=== PATIENT | female | born 1950 | race Caucasian/White ===

== ENCOUNTER 2018-06-27 15:35 | Emergency (ER) | payer MEDICARE, BC ==
--- NOTE | 2018-06-27 18:02 | ER Document Report ---
ED General - General Chief Complaint: Rib Pain Stated Complaint: POSSIBLE BLOOD CLOT Time Seen by Provider: 06/27/18 16:43 Mode of Arrival: Ambulatory Notes: Patient is a 68-year-old female who was sent here by the urgent care center because she sustained a fall from a tree house last week and landed on her left ribs. She also hurt her left ankle which the urgent care to care of. They are concerned that she may have a blood clot. Or/PE. Patient is having some left lateral or axillary rib pain when she takes a deep breath and when it is palpated. Patient has a history of hypertension and mild depression which she takes BuSpar for. Patient does not smoke drink or do narcotics. She denies any chest pain or shortness of breath with the exception of a little rib pain left lateral side. TRAVEL OUTSIDE OF THE [place] IN LAST 30 DAYS: No - HPI Onset: Last week Onset/Duration: Gradual Quality of pain: Achy, Sharp Severity: Moderate Pain Level: 3 Associated symptoms: Hurts to breath. denies: Nonproductive cough, Productive cough Exacerbated by: Movement, Deep breathing Relieved by: Denies Similar symptoms previously: No Recently seen / treated by doctor: Yes - Related Data Allergies/Adverse Reactions: enalaprilat [From Vasotec] Allergy (Verified 06/27/18 15:37) levofloxacin [From Levaquin] Allergy (Verified 06/27/18 15:37) Past Medical History - General Information source: Patient, Relative - Social History Smoking Status: Never Smoker Chew tobacco use (# tins/day): No Smoking Education Provided: No Frequency of alcohol use: Social Drug Abuse: None Family History: Reviewed & Not Pertinent Patient has suicidal ideation: No Patient has homicidal ideation: No - Past Medical History Cardiac Medical History: Reports: Hx Hypertension Renal/ Medical History: Denies: Hx Peritoneal Dialysis Past Surgical History: Reports: Hx Section, Hx Cholecystectomy Review of Systems - Review of Systems Constitutional: No symptoms reported EENT: No symptoms reported Cardiovascular: No symptoms reported Respiratory: Hurts to breathe. denies: Short of breath, Wheezing Gastrointestinal: No symptoms reported Genitourinary: No symptoms reported Female Genitourinary: No symptoms reported Musculoskeletal: No symptoms reported Skin: No symptoms reported Hematologic/Lymphatic: No symptoms reported Neurological/Psychological: No symptoms reported -: Yes All other systems reviewed and negative Physical Exam - Vital signs Vitals: Temp Pulse Resp BP Pulse Ox 97.6 F 72 16 176/85 H 99 06/27/18 15:49 06/27/18 15:49 06/27/18 15:49 06/27/18 15:49 06/27/18 15:49 Interpretation: Hypertensive - Notes Notes: Patient is a 68-year-old female no apparent distress. Answers questions in full sentences. - General General appearance: Appears well, Alert In distress: None - Respiratory Respiratory status: No respiratory distress Chest status: Tender, No pleuritic chest pain, Pain on movement, Pain with cough , Pain with deep breathing, Splinting, Other - Examination of patient's left sided chest shows to palpation she has some positive tenderness along the lateral to anterior left chest just up under the breast. When pressure applied to the area and deep breath taken tenderness and pain are reduced. When patient breathes on her own she has a tendency to hurt in a generalized area. There is no sign of ecchymosis or abrasions when inspected. But this occurred approximately 1 week ago.. No: Ecchymosis, Accessory muscle use, Prolonged expirations Breath sounds: Normal, Other - Patient has bilateral breath sounds with breath sounds increased throughout no rhonchi rales or wheezes are noted. Lungs are clear. No: Rales, Rhonchi, Stridor, Wheezing Chest palpation: Tender. No: Ecchymosis, Wounds - Cardiovascular Rhythm: Regular Heart sounds: Normal auscultation Murmur: No - Neurological Neuro grossly intact: Yes Cognition: Normal Orientation: AAOx4 Bony Coma Scale Eye Opening: Spontaneous [place] Coma Scale Verbal: Oriented [place] Coma Scale Motor: Obeys Commands Bony Coma Scale Total: 15 Speech: Normal - Skin Skin Temperature: Warm Skin Moisture: Dry Skin Color: Normal, [place], Other - Physical exam is stated shows no signs of ecchymosis or abrasions. Skin Turgor: Elastic Course - Re-evaluation Re-evalutation: 06/27/18 18:07 I have explained to patient that there is 2 options we can use to tell whether she has a luminary embolism or not. I have explained to her the idea behind drawing blood and doing a d-dimer that if it is negative then she definitely does not have a pulmonary embolism or if that will not satisfy her and she needs to have the full radiologic testing done before she would have comfort I was willing to offer her that. Patient does not want a CTA of the chest if she does not have to have it. Therefore we had done the d-dimer and it did come back negative. At this point there is no PE we need to worry about. Patient has some bruising and some costochondritis associated with the fall. She will be taken ibuprofen at home [id number] for it. She will follow-up with the urgent care for her ankle which have already treated. We have discussed as well the idea of taking deep breaths occasionally every hour or so to keep her lungs clear. Patient does not smoke but I explained to her that this is her body's way of cleaning the lungs out and keeping them clean. 06/27/18 18:09 - Vital Signs Vital signs: Temp Pulse Resp BP Pulse Ox 97.6 F 72 16 176/85 H 99 06/27/18 15:49 06/27/18 15:49 06/27/18 15:49 06/27/18 15:49 06/27/18 15:49 Discharge - Discharge Clinical Impression: Costochondritis Rib contusion Qualifiers: Encounter type: initial encounter Laterality: left Qualified Code(s): S20.212A - Contusion of left front wall of thorax, initial encounter Disposition: HOME, SELF-CARE Instructions: Rib Contusion ([facility]), Costochondritis ([facility]) Additional Instructions: As we discussed at some point for you to take deep breaths. He may ice to the area 3 times a day as well. Take ibuprofen or Motrin as we discussed with food 3 times a day. The deep breathing will be more important and most anything else. Should you have any concerns or problems return to ER for a recheck. Forms: Elevated Blood Pressure Referrals: MARIANO PERDOMO MD [Primary Care Provider] - Follow up as needed
[2018-06-27 18:03] VITALS: BP 166/89
== END 2018-06-27 18:17 | disposition home or self-care (01) ==
LOC: ER 15:35
DX: M94.0 Chondrocostal junction syndrome [Tietze] (principal); S20.212A Contusion of left front wall of thorax, initial encounter; W14.XXXA Fall from tree, initial encounter; F32.9 Major depressive disorder, single episode, unspecified; Z79.899 Other long term (current) drug therapy
CPT/HCPCS: 36415; 85379; 99283